=== PATIENT | female | born 1985 | race Two or more races ===

== ENCOUNTER 2025-05-13 19:47 | Emergency (ER) | payer MEDICAID, SELFPAY ==
[2025-05-13 19:48] VITALS: BMI 23.7
[2025-05-13 20:48] VITALS: BP 134/78; PULSE 89; RESP 20; TEMP 36.7; O2SAT 96
--- NOTE | 2025-05-13 20:52 | PD.EDRME ---
Rapid Medical Screening Exam RME Arrival date/time: 05/13/25 19:47 This is a case of 39-year-old female with no medical history came into the emergency room due to abdominal pain nausea vomiting for 2 days worsening of the symptoms this patient decided to start consult her in the emergency room 05/13/25 19:47 Chief Complaint: Abdominal Pain Time Seen by Provider: 05/13/25 20:26 Vital signs: Vital Signs Temperature 98.1 F 05/13/25 20:48 Pulse Rate 89 05/13/25 20:48 Respiratory Rate 20 05/13/25 20:48 Blood Pressure 134/78 H 05/13/25 20:48 Pulse Oximetry (%) 96 05/13/25 20:48 Oxygen Delivery Method Room Air 05/13/25 20:48
[2025-05-13 21:22] VITALS: BP 118/66; PULSE 79; RESP 18; O2SAT 100
[2025-05-13 21:32] LABS: Collection Type, Urine Clean Catch
[2025-05-13 21:32] LABS: Basophils # (Auto) 0.0 Thou/mm3 (0.0-0.2); Basophils % (Auto) 0 % (0-2.5); Eosinophils # (Auto) 0.1 Thou/mm3 (0.0-0.5); Eosinophils % (Auto) 2 % (0-10); Hematocrit 29.2 % (36.0-46.0); Hemoglobin 9.8 g/dL (12.0-16.0); Immature Granulocytes Auto 0.01 Thou/mm3 (0.00-0.00); Lymphocytes # (Auto) 2.6 Thou/mm3 (1.0-4.8); Lymphocytes % (Auto) 33 % (10-50); Mean Corpuscular HGB Conc 33.6 g/dl (31.0-37.0); Mean Corpuscular Hemoglobin 30.4 pg (25.0-35.0); Mean Corpuscular Volume 91 fL (80-100); Monocytes # (Auto) 0.6 Thou/mm3 (0.0-0.8); Monocytes % (Auto) 7 % (0-12); Neutrophils # (Auto) 4.6 Thou/mm3 (1.8-7.7); Neutrophils % (Auto) 58 % (37-80); Nucleated Red Blood Cell # 0.00 Thou/mm3 (0.00-0.00); Nucleated Red Blood Cell % 0 /100 WBC (0); Platelet Count 205 Thou/mm3 (140-440); RDW Standard Deviation 42.8 fL (36.4-46.3); Red Blood Count 3.22 Miln/mm3 (4.00-5.20); White Blood Count 7.9 Thou/mm3 (3.6-11.0)
[2025-05-13 21:38] LABS: Bilirubin,Urine Negative (Negative); Blood,Urine Negative (Negative); Clarity,Urine Clear (Clear/Hazy); Color,Urine Lt-Yellow (Lt Yel-Yel); Glucose, Urine Negative (Negative); Ketones,Urine Negative (Negative); Leukocyte Esterase,Urine Negative (Negative); Nitrite,Urine Negative (Negative); PH,Urine 8.0 (5.0-7.0); Protein,Urine Negative (Neg - Trace); RBC,Urine 1 /hpf (0-3); Specific Gravity,Urine 1.019 (1.001-1.035); Squamous Epithelial Cell,Urine 3 /hpf (0-5); Urobilinogen,Urine Negative mg/dL (0.0-1.0); WBC,Urine < 1 /hpf (0-5)
--- NOTE | 2025-05-13 21:38 | EDNOTE_ITS ---
ED Abdominal Pain RME/HPI General Chief Complaint: Abdominal Pain Stated complaint: ABD PAIN X1DAY Time seen by provider: 05/13/25 20:26 Arrival date/time: 05/13/25 19:47 RME / HPI RME / HPI narrative: 05/13/25 19:47 This is a case of 39-year-old female with no medical history came into the emergency room due to abdominal pain nausea vomiting for 2 days worsening of the symptoms this patient decided to start consult her in the emergency room 05/13/25 19:47 Dr. Ambrocio?s Main ED Evaluation: 39yo female presenting with generalized abdominal pain x 2 days with associated bloating sensation. Reports increased pain with PO intake and one bout of nonbloody emesis. No fever, chills, or dysuria. LMP 04/23/25. PMH unremarkable. PSH includes hernia repair and c- section. Nondrinker, no illicit drug use. Related Data Home Medications ?Medication ?Instructions ?Recorded ?Confirmed folic acid 1 mg tablet 1 mg PO QDAY 10/19/19 vits no.124-ferrous fum 1 tab PO QDAY 0 01/07/20 27 mg iron-folic acid 800 mcg tablet ( Vitamin) Previous Rx's ?Medication ?Instructions ?Recorded docusate sodium 100 mg capsule 100 mg PO BID post part um #60 caps 01/09/20 (Colace) methimazole 5 mg tablet 5 mg PO BID 30 days #60 tabs 12/11/22 Allergies Allergy/AdvReac Type Severity Reaction Status Date / Time No Known Allergies Allergy Verified 01/07/20 08:22 Review of Systems Review of Systems Systems Reviewed: All systems reviewed, normal except as documented Past Medical History Past Medical History NEUROLOGIC: Negative Neurological Disorders or Seizures CARDIAC: Negative Cardiac Disorders or Congestive Heart Failure RESPIRATORY: Negative Chronic Obstructive Pulmonary Disease (COPD) or Asthma GASTROINTESTINAL: Negative Gastrointestinal Disorders, Hepatitis or Colorectal Cancer GENITOURINARY: Negative Genitourinary Disorders, Renal Disease or Prostate Cancer REPRODUCTIVE: Negative Breast Cancer or Testicular Cancer MUSCULOSKELETAL: Negative Musculoskeletal Disorders, Bone Cancer or Rheumatoid Arthritis ENDOCRINE: Positive Endocrine Disorders, Diabetes Mellitus Type 2 (GDM (DIET CONTROLLED) WITH 1ST ) and Hyperthyroidism; Negative Diabetes Mellitus Type 1, Hypoglycemia, John's Syndrome, Bhaskar's Disease, Hypothyroidism, Parathyroid Disease, Pituitary Disease, Systemic Lupus Erythematosus, Syndrome of Inappropriate Antidiuretic Hormone (SIADH), Adrenal Disease or Graves' Disease HEMATOLOGIC: Negative Blood Disorders or Anemia PSYCHO/SOCIAL: Negative Depression or Anxiety OTHER HISTORY: Positive Hospitalization (PRIOR VAGINAL DELIVERIES) and Chicken Pox ( A CHILD); Negative Autoimmune Disease, Down Syndrome, Developmental Delay, Shingles, Falls, Blood Transfusions, Blood Transfusion Reaction, Anesthesia Reactions, Organ Transplant, Chemotherapy, Radiation Therapy, Hyperbaric Therapy, MRSA, VRSA, Vancomycin-Resistant Enterococci, Human Immunodeficiency Virus (HIV), Measles, Mumps, Rubella (Irish Measles), Pertussis, Clostridium Difficile, Cancer, Breast Cancer, Cervical Cancer, Colorectal Cancer, Lung Cancer, Ovarian Cancer, Prostate Cancer or Testicular Cancer Family History FAMILY HISTORY: Negative Family Psychiatric Problems, Family Respiratory Disorders, Family Cardiac Disorders, Family Gastrointestinal Problems, Family Cancer, Family Surgery or Family Anesthesia Reaction Surgical History SURGICAL: Negative Section or Organ Transplant Social History SMOKING STATUS: Never smoker SECOND HAND EXPOSURE: No ED Exam Narrative Physical exam: GENERAL APPEARANCE: alert and oriented x 4, nontoxic, complains of generalized abdominal pain, well-developed, well-nourished, no acute distress VITALS: All vitals were reviewed and the pulse ox is 100% on room air, which is normal according to my interpretation. HEENT: Normocephalic, atraumatic; pupils equal, round, reactive to light; EOMI; mucous membranes pink, moist; oropharynx clear NECK: Supple LUNGS: CTABL; no wheezes, no rales, no rhonchi HEART: Regular rate, regular rhythm; normal S1, S2; no murmurs ABDOMEN: mildly distended; diminished BS; soft, diffuse mild tenderness, no peritoneal findings BACK: no CVA tenderness EXTREMITIES: atraumatic; no edema NEUROLOGIC: awake; alert and oriented x4; cranial nerves II-XII grossly intact; no focal sensory or motor deficits PSYCHIATRIC: appropriate mood and affect SKIN: warm, dry, normal color; no rashes Course Quality Measures none Orders Category Date Time Status XR abdomen series w chest 1V Stat Exams 05/13/25 21:52 Completed CBC Stat Lab 05/13/25 21:07 Completed Comprehensive Metabolic Panel Stat Lab 05/13/25 21:07 Completed HCG Qualitative,Urine Stat Lab 05/13/25 21:25 Completed HCG,Qualitative Serum Stat Lab 05/13/25 21:07 Completed Lipase Stat Lab 05/13/25 21:07 Completed Urinalysis Stat Lab 05/13/25 21:25 Completed Morphine* Inj Med 05/13/25 21:50 Discontinued 2 mg IVP X1 ONE Prochlorperazine Inj [Compazine Inj] Med 05/13/25 21:49 Discontinued 5 mg IV X1 ONE Sodium Chloride 0.9% 1000 ml [Ns] 1,000 ml Med 05/13/25 21:49 Discontinued IV 999 mls/hr Vital Signs Vital signs: Vital Signs Temperature 98.1 F 05/13/25 20:48 Pulse Rate 89 05/13/25 20:48 Respiratory Rate 20 05/13/25 20:48 Blood Pressure 134/78 H 05/13/25 20:48 Pulse Oximetry (%) 96 05/13/25 20:48 Oxygen Delivery Method Room Air 05/13/25 20:48 Abdominal Pain MDM MDM Narrative MDM Narrative:: Scribe Attestation: 05/13/25 - Guillermina Oneal am scribing for and in the presence of Dr. Ambrocio. 39yo female presenting with generalized abdominal pain x 2 days with associated bloating sensation. Reports increased pain with PO intake and one bout of nonbloody emesis. Please see PE findings. Lab markers demonstrated normal WBC count, mild anemia with Hgb 9.8, no left shift. Chemistries unremarkable. UA within normal limits. Routine abdominal x-rays demonstrated ileus pattern with moderate stool burden. Will initiate laxative therapy. Patient was administered magnesium citrate, will be discharged home on Dulcolax suppositories, and advised to maintain clear liquid diet for 24-48 hours. Precaution instructions issued. Patient data External records reviewed:: [facility] previous records (Per chart review, patient has no previous ED visits.) Clinical information provided by:: patient Social determinants that could affect healthcare access:: none Patient has the following chronic illnesses:: hyperthyroidism How is presenting disease/condition affected by chronic disease/condition?: uneffected by Evaluation data The following diagnostics were reviewed and interpreted by me:: lab results and radiology exam(s) Lab and/or radiology exams considered but not ordered:: none Interpretation Summary: [facility] Report Signed [facility] Record[facility] [id number] Birthdate: 1985 Age/Sex: 39 / F Location: [facility] Attending Dr: Ordering Physician: Luke Ellington DO Date of Service: 05/13/25 Procedure(s): XR abdomen series w chest 1V Accession Number(s): [id number] cc: Luke Ellington DO; Laureano Hunter MD; Domingo Leonard MD~ EXAMINATION: Abdominal series 3 views including upright PA chest TECHNIQUE: Upright PA chest AP upright AP supine abdomen 3 views Date and time: May 13, 2025, 1010 hours INDICATIONS: Abdominal pain 2 days FINDINGS: Normal heart size Lungs are clear. Moderate thoracolumbar levoscoliosis Moderate stool throughout the colon A few loops of air-filled small bowel No obstruction IMPRESSION: Mild small bowel ileus No obstruction Dictated By: Domingo Leonard MD Signed By: <Electronically signed by Domingo Leonard MD in OV> 05/13/25 2234 Medications / Prescriptions Medications or Prescriptions considered but not ordered:: none Medication administrations:: Medication Administration History Discontinued Medications Sodium Chloride (Ns) 1,000 mls @ 999 mls/hr IV .Q1H1M ONE Stop: 05/13/25 22:49 Last Admin: 05/13/25 22:25 Dose: 999 mls/hr Documented By: KEEGAN Morphine Sulfate (Morphine Sulf Inj 4 Mg/Ml Vial) 2 mg IVP X1 ONE Stop: 05/13/25 21:51 Last Admin: 05/13/25 22:26 Dose: 2 mg Documented By: KEEGAN Prochlorperazine Edisylate (Prochlorperazine Inj 5 Mg/Ml Vial 2 Ml) 5 mg IV X1 ONE; Protocol Stop: 05/13/25 21:50 Last Admin: 05/13/25 22:26 Dose: 5 mg Documented By: KEEGAN see above Consultations Consultation(s) initiated? (list below): No Diagnosis Differential diagnosis abdominal pain: constipation, diverticulitis, gastroenteritis and small bowel obstruction Most likely diagnosis given after review of the tests above:: see clinical impression below Admission Indicated Admission indicated?: not indicated Admission Request Was there a request for admission?: No Disposition Plan Disposition Plan: Discharge Discharge Attestation Discharge Attestation: The patient and all family members were given an opportunity to ask questions and understood the discharge instructions. Discharge instructions specifically effects, indications for sooner follow up or return to the emergency department, and the expected course of current diagnosis. Patient condition: Stable Discharge Plan Plan Patient Disposition: HOME (Self Care) Discharge Disposition comment: Stable Prescriptions/Referrals Prescriptions/Med Rec: No Action folic acid 1 mg Tablet 1 mg PO QDAY Vitamin 27 mg iron- 800 mcg Tablet 1 tab PO QDAY docusate sodium [Colace] 100 mg capsule 100 mg PO BID MDD 2 Qty: 60 0RF methimazole 5 mg Tablet 5 mg PO BID 30 Days Qty: 60 1RF Referrals: Laureano Hunter MD [Primary Care Provider, Family Practice] - In 1 week Problem List Clinical Impression: Ileus, Constipation Patient/Caregiver Discharge Instructions Discharge Activity: activity as tolerated Diet Instructions: Clear liquid diet x 24 to 48 hours and advance as tolerated. Education Materials: Ileus, ED Constipation (Adult) Additional Instructions: Clear liquid diet x 24 to 48 hours and advance as tolerate. Utilize suppositories as directed. Return for fever escalating abdominal pain persistent vomiting or worsening illness. Print Language: Luxembourger Stand Alone Forms: Shanelle Award Info., Patient Portal Info Letter
[2025-05-13 21:40] LABS: HCG Qualitative,Urine Negative
[2025-05-13 21:44] LABS: HCG,Qualitative Serum Negative
[2025-05-13 21:49] LABS: Alanine Aminotransferase 14 U/L (10-49); Albumin, Serum 4.5 gm/dL (3.5-5.0); Albumin/Globulin Ratio 1.9 (1.2-2.2); Alkaline Phosphatase 71 U/L (46-116); Anion Gap 8 (7-16); Aspartate Amino Transferase 20 U/L (0-34); BUN/Creatinine Ratio 17 Ratio (12-20); Bilirubin,Total 0.5 mg/dL (0.3-1.2); Blood Urea Nitrogen 12 mg/dL (9-23); Calcium 9.5 mg/dL (8.3-10.6); Calcium (Corrected) 9.5 mg/dL (8.5-10.1); Carbon Dioxide 27.9 mMol/L (20.0-31.0); Chloride 105 mMol/L (98-107); Creatinine (Component) 0.7 mg/dL (0.6-1.3); Estimated Creatinine Clearance 103.0 mL/min (>60); Globulin 2.4 gm/dL (2.3-3.5); Glucose 97 mg/dL (74-106); Lipase 32 U/L (12-53); Osmolality,Calculated 280 (275-295); Potassium 3.8 mMol/L (3.4-5.1); Sodium 141 mMol/L (136-145); Total Protein 6.9 gm/dL (5.7-8.2); eGFR > 60 See Note
--- NOTE | 2025-05-13 21:52 | XR_ITS ---
EXAMINATION: Abdominal series 3 views including upright PA chest TECHNIQUE: Upright PA chest AP upright AP supine abdomen 3 views Date and time: May 13, 2025, 1010 hours INDICATIONS: Abdominal pain 2 days FINDINGS: Normal heart size Lungs are clear. Moderate thoracolumbar levoscoliosis Moderate stool throughout the colon A few loops of air-filled small bowel No obstruction IMPRESSION: Mild small bowel ileus No obstruction
[2025-05-13] MEDS: SODIUM CHLORIDE 0.9% 1000 ML 1,000 ML 999 ML IV (22:25)
[2025-05-13] MEDS: PROCHLORPERAZINE INJ 5 MG/ML VIAL 2 ML IV (22:26)
[2025-05-13] MEDS: MORPHINE SULF INJ 4 MG/ML VIAL 2 MG IVP (22:26)
[2025-05-13] MEDS: MAGNESIUM CITRATE 300 ML BTL 150 ML PO (23:40)
== END 2025-05-13 23:50 | disposition home or self-care (01) ==
PROVIDERS: Nurse Practitioner Family; Emergency Provider Emergency Medicine; PCP Family Medicine
DX: K56.7 Ileus, unspecified (principal)
CPT/HCPCS: 36415; 74022; 80053; 81001; 81025; 83690; 84703; 85025; 96361; 96374; 99284; J0780; J2270; J7030; A9270